=== PATIENT | male | born 1990 | race African-American/Black ===

== ENCOUNTER 2023-12-10 18:10 | Inpatient (IN) | payer OTHER ==
[~2023-12-10] VITALS: Ht 167.6 cm; Wt 66.0 kg
[2023-12-10 20:37] LABS: BASOPHILS % (AUTO) 1.1 % (0.0-2.0); EOSINOPHILS % (AUTO) 4.4 % (1.0-6.0); HEMATOCRIT 41.8 % (41-53); HEMOGLOBIN 13.9 g/dL (13.5-17.5); LYMPHOCYTES # (AUTO) 1.3 K/uL (1.0-4.8); LYMPHOCYTES % (AUTO) 23.2 % (22.0-44.0); MEAN CORPUSCULAR HEMOGLOBIN 30.8 pg (26.0-34.0); MEAN CORPUSCULAR HGB CONC 33.3 G/dL (31.0-37.0); MEAN CORPUSCULAR VOLUME 93 fL (80-100); MONOCYTES # (AUTO) 0.4 K/uL (0.1-1.0); MONOCYTES % (AUTO) 7.5 % (2.0-9.0); NEUTROPHILS # (AUTO) 3.5 K/uL (1.8-7.7); NEUTROPHILS % (AUTO) 63.8 % (40.0-70.0); PLATELET COUNT (AUTO) 194 K/uL (150-450); RED BLOOD CELL COUNT(AUTO) 4.52 MIL/uL (4.50-5.90); RED CELL DISTRIBUTION WIDTH 13.2 % (11.5-14.5); WHITE BLOOD COUNT (AUTO) 5.4 K/uL (4.5-11.0)
[2023-12-10 20:46] LABS: ANION GAP 7 mmol/L (8-16); CALCIUM, TOTAL 9.1 mg/dL (8.8-10.5); CARBON DIOXIDE 28 mmol/L (22-29); CHLORIDE 105 mmol/L (98-107); CREATININE 0.79 mg/dL (0.60-1.30); GLOMERULAR FILTR. RATE CALC > 60 mL/min (>60); GLUCOSE,RANDOM 97 mg/dL (70-110); SODIUM SERUM 140 mmol/L (136-145); UREA NITROGEN, BLOOD 19 mg/dL (7-18)
[2023-12-10 20:52] LABS: ALANINE AMINOTRANSFERASE 17 U/L (12-78); ALBUMIN 4.1 g/dL (3.4-5.0); ALKALINE PHOSPHATASE 70 U/L (46-116); ASPARTATE AMINOTRANSFERASE 19 U/L (15-37); BILIRUBIN,TOTAL 0.7 mg/dL (0.1-1.0); TOTAL PROTEIN, SERUM 7.7 g/dL (6.4-8.2)
[2023-12-10] MEDS ORDERED: LIDOCAINE 1% 10 ML VIAL ONE (20:52)
[2023-12-10 20:55] LABS: ALCOHOL, BLOOD (SERUM) < 3 mg/dL (0-10)
[2023-12-10 21:58] LABS: COVID AG,FIA SOURCE NASAL SWAB
[2023-12-10] MEDS ORDERED: ONDANSETRON HCL 4 MG/2 ML VIAL IVP PRN (22:30)
[2023-12-10 22:35] VITALS: BP 118/64; PULSE 59; RESP 18; TEMP 98.3
[2023-12-10 22:57] LABS: SARS-COV2 (COVID) ANTIGEN,FIA Negative (Negative)
[2023-12-10] MEDS: HEPARIN SODIUM,PORCINE 5,000 UNITS/ML VIAL SQ SCH (23:45)
[2023-12-10] MEDS: RINGERS SOLUTION,LACTATED 1,000 ML IV SCH (23:45)
[2023-12-11 04:51] VITALS: BP 111/69; PULSE 51; RESP 18; TEMP 98.4
[2023-12-11 08:06] LABS: ANION GAP 9 mmol/L (8-16); CALCIUM, TOTAL 8.8 mg/dL (8.8-10.5); CARBON DIOXIDE 26 mmol/L (22-29); CHLORIDE 105 mmol/L (98-107); CREATININE 0.82 mg/dL (0.60-1.30); GLOMERULAR FILTR. RATE CALC > 60 mL/min (>60); GLUCOSE,RANDOM 89 mg/dL (70-110); POTASSIUM 4.3 mmol/L (3.5-5.1); SODIUM SERUM 140 mmol/L (136-145); UREA NITROGEN, BLOOD 17 mg/dL (7-18)
[2023-12-11 08:08] LABS: BASOPHILS % (AUTO) 0.5 % (0.0-2.0); EOSINOPHILS % (AUTO) 6.2 % (1.0-6.0); HEMATOCRIT 39.6 % (41-53); HEMOGLOBIN 13.4 g/dL (13.5-17.5); LYMPHOCYTES # (AUTO) 0.9 K/uL (1.0-4.8); LYMPHOCYTES % (AUTO) 25.3 % (22.0-44.0); MEAN CORPUSCULAR HEMOGLOBIN 31.4 pg (26.0-34.0); MEAN CORPUSCULAR HGB CONC 33.7 G/dL (31.0-37.0); MEAN CORPUSCULAR VOLUME 93 fL (80-100); MONOCYTES # (AUTO) 0.3 K/uL (0.1-1.0); MONOCYTES % (AUTO) 9.5 % (2.0-9.0); NEUTROPHILS # (AUTO) 2.1 K/uL (1.8-7.7); NEUTROPHILS % (AUTO) 58.5 % (40.0-70.0); PLATELET COUNT (AUTO) 168 K/uL (150-450); RED BLOOD CELL COUNT(AUTO) 4.26 MIL/uL (4.50-5.90); RED CELL DISTRIBUTION WIDTH 13.1 % (11.5-14.5); WHITE BLOOD COUNT (AUTO) 3.6 K/uL (4.5-11.0)
[2023-12-11] MEDS: SERTRALINE HCL 50 MG TABLET PO SCH (11:40)
[2023-12-11 11:54] LABS: APPEARANCE,URINE CLEAR (CLEAR); BILIRUBIN,URINE NEGATIVE (NEGATIVE); COLOR,URINE YELLOW (YELLOW); GLUCOSE, URINE (UA) NEGATIVE (NEGATIVE); KETONES,URINE NEGATIVE (NEGATIVE); LEUKOCYTE ESTERASE ,URINE NEGATIVE (NEGATIVE); NITRATE,URINE NEGATIVE (NEGATIVE); OCCULT BLOOD,URINE NEGATIVE (NEGATIVE); PROTEIN,URINE TRACE mg/dL (NEGATIVE); SPECIFIC GRAVITIY, URINE 1.031 (1.003-1.030); UROBILINOGEN,URINE <=1.0 mg/dL (<=1.0)
[2023-12-11 11:56] LABS: RBC,URINE None Seen /HPF (0-2)
[2023-12-11 11:57] LABS: BACTERIA,URINE None Seen /HPF (None Seen); WBC,URINE None Seen /HPF (0-5)
[2023-12-11 12:11] LABS: ALCOHOL, URINE DRUG SCREEN NEGATIVE (NEGATIVE); AMPHET/METH SCREEN,URINE NEGATIVE (NEGATIVE); BARBITURATE SCREEN, URINE NEGATIVE (NEGATIVE); BENZODIAZEPINES SCREEN,URINE NEGATIVE (NEGATIVE); CANNABINOID SCREEN,URINE POSITIVE (NEGATIVE); COCAINE SCREEN,URINE NEGATIVE (NEGATIVE); METHADONE SCREEN, URINE NEGATIVE (NEGATIVE); OPIATE SCREEN,URINE NEGATIVE (NEGATIVE); PHENCYCLIDINE SCREEN,URINE NEGATIVE (NEGATIVE)
[2023-12-11 17:01] VITALS: BP 111/66; PULSE 67; RESP 18; TEMP 98
[2023-12-11 19:36] VITALS: BP 124/52; PULSE 80; RESP 18; TEMP 98.1
[2023-12-11] MEDS: ACETAMINOPHEN 325 MG TABLET PO PRN (20:56)
[2023-12-12 04:54] VITALS: BP 110/83; PULSE 68; RESP 18; TEMP 97.7
[2023-12-12 08:19] VITALS: BP 106/59; PULSE 71; RESP 18; TEMP 98
[2023-12-12 16:00] VITALS: BP 111/61; PULSE 74; RESP 18; TEMP 98.2
[2023-12-12 20:33] VITALS: BP 118/74; PULSE 89; RESP 18; TEMP 97.9
[2023-12-13 06:26] VITALS: BP 112/62; PULSE 66; RESP 20; TEMP 98
[2023-12-13 08:12] VITALS: BP 116/56; PULSE 78; RESP 18; TEMP 98.3
[2023-12-13 20:19] VITALS: BP 117/62; PULSE 84; RESP 18; TEMP 98
[2023-12-13] MEDS: OLANZapine 5 MG TABLET PO SCH (20:23)
[2023-12-14 05:17] VITALS: BP 102/59; PULSE 59; RESP 18; TEMP 97.8
[2023-12-14 08:00] VITALS: BP 103/50; PULSE 69; RESP 18; TEMP 98.2
[2023-12-14] MEDS: QUEtiapine FUMARATE 25 MG TABLET PO PRN (14:31)
[2023-12-14] MEDS ORDERED: SERT-158 PO (14:48)
[2023-12-14] MEDS ORDERED: OLAN5TAB52 PO (14:48)
== END 2023-12-14 20:21 | DRG 394 ==
LOC: EMS 18:31 → 6S 20:45
PROVIDERS: ADMIT Internal Medicine; ATTEND Internal Medicine
DX: T18.9XXA Foreign body of alimentary tract, part unspecified, initial encounter (principal); F32.3 Major depressive disorder, single episode, severe with psychotic features; R45.851 Suicidal ideations; E86.0 Dehydration; Z20.822 Contact with and (suspected) exposure to COVID-19; F29 Unspecified psychosis not due to a substance or known physiological condition; W44.C0XA Glass unspecified, entering into or through a natural orifice, initial encounter; Y93.89 Activity, other specified; Y92.89 Other specified places as the place of occurrence of the external cause; Y99.8 Other external cause status; Z91.52 Personal history of nonsuicidal self-harm
CPT/HCPCS: 71045; 74176; 80048; 80053; 80307; 81001; 83735; 85025; 99285; G0480; J1644; J3490; J7120; 36415-L1; 36415-TC

== ENCOUNTER → 2024-01-26 | Outpatient (CLI) | payer OTHER ==
[~2024-01-26] MED LIST: OLAN5TAB52 PO; SERT-158 PO
== END | disposition home or self-care (01) ==
LOC: RADMN 12:58
PROVIDERS: ATTEND Family Medicine
DX: R68.84 Jaw pain (principal)
CPT/HCPCS: 70486

== ENCOUNTER 2024-03-07 16:02 | Emergency (ER) | payer OTHER ==
[~2024-03-07] VITALS: Ht 170.2 cm; Wt 68.1 kg
[2024-03-07 18:06] VITALS: BP 125/73; PULSE 90; RESP 18; TEMP 97.6
[2024-03-07 18:45] LABS: APPEARANCE,URINE CLEAR (CLEAR); BILIRUBIN,URINE NEGATIVE (NEGATIVE); COLOR,URINE LIGHT YELLOW (YELLOW); GLUCOSE, URINE (UA) NEGATIVE (NEGATIVE); KETONES,URINE NEGATIVE (NEGATIVE); LEUKOCYTE ESTERASE ,URINE NEGATIVE (NEGATIVE); NITRATE,URINE NEGATIVE (NEGATIVE); OCCULT BLOOD,URINE NEGATIVE (NEGATIVE); PROTEIN,URINE NEGATIVE (NEGATIVE); SPECIFIC GRAVITIY, URINE 1.015 (1.003-1.030); UROBILINOGEN,URINE <=1.0 mg/dL (<=1.0)
== END 2024-03-07 19:31 | disposition home or self-care (01) ==
LOC: EMS 16:02
DX: N48.6 Induration penis plastica (principal); Z91.013 Allergy to seafood
CPT/HCPCS: 81003; 99283